=== PATIENT | female | born 1975 | race Two or more races ===

== ENCOUNTER 2016-12-06 15:56 | Emergency (ER) | payer MEDICAID, OTHER ==
[~2016-12-06] VITALS: Ht 172.7 cm; Wt 113.4 kg
[2016-12-06 16:22] VITALS: BP 154/67
[2016-12-06] MEDS ORDERED: KETOROLAC TROMETH 60MG/2ML VIAL IM ONE (17:45)
== END 2016-12-06 18:27 | disposition home or self-care (01) ==
LOC: EDUNIT# 15:56 → EDBD 15:56 → ER 16:01
DX: S83.8X1A Sprain of other specified parts of right knee, initial encounter (principal); E07.89 Other specified disorders of thyroid; X50.0XXA Overexertion from strenuous movement or load, initial encounter; Y93.89 Activity, other specified; Y99.8 Other external cause status; Y92.89 Other specified places as the place of occurrence of the external cause
CPT/HCPCS: 96372; 99284; J1885